=== PATIENT | female | born 1955 | race Caucasian/White ===

== ENCOUNTER 2017-10-26 16:45 | Day surgery (SDC) | payer OTHER ==
[2017-10-26] MEDS ORDERED: NS 1,000 ML IV ONE (17:08)
[2017-10-26] MEDS ORDERED: DIAZEPAM 5 MG/ML 1 ML SYR IVP ONE (17:08)
--- NOTE | 2017-10-26 17:11 | EDPHY ---
H & P Stated Complaint: pt was eating and has a piece of chicken stuck in her throat Time Seen by Provider: 10/26/17 17:08 HPI/ROS: HPI: This is a 62-year-old female who presents with Chief Complaint: pt was eating and has a piece of chicken stuck in her throat Location: throat Quality: chicken stuck Duration:since 12 noon Signs and Symptoms: no fever, no nausea, no vomiting, no hematemesis, no blood in stool, no abdominal bloating, no diarrhea, no back pain, no urinary symptoms , no indigestion, no chest pain, no shortness of breath Timing: Acute Severity: Moderate Context: Patient has a history of esophageal stricture presents with eating at a [employer] restaurant for lunch around noon and getting a piece of Sesame Chicken stuck in her throat. She reports that she initially felt a scratchy painful sensation in her throat. She believes that this sensation slowly started to pass within a few minutes. She took a drink and then felt the painful sensation reappear. She then reports that she was unable to swallow her secretions at that point. She has a history of prior endoscopy secondary to chicken food bolus last year. She denies any chest pain, shortness of breath. Does not take any blood thinners. Modifying Factors: None Comment: ROS: A comprehensive 10 system review of systems is otherwise negative aside from elements mentioned in the history of present illness. MEDICAL/SURGICAL/SOCIAL HISTORY: Medical history: Generally healthy. Does not take any regular medications. Surgical history: colon resection, appendectomy Social history: non-smoker. Family history noncontributory. CONSTITUTIONAL: Polite and cooperative elderly white female, holding washcloth spitting secretions into her hand, awake and alert, no obvious distress HEENT: Atraumatic and normocephalic, PERRL, EOMI. Nares patent; no rhinorrhea; no nasal mucosal edema. Tympanic membranes clear. Oropharynx clear, no exudate and moist pink mucosa. Airway patent. No lymphadenopathy. No meningismus. Cardiovascular: Normal S1/S2, regular rate, regular rhythm, without murmur rub or gallop. PULMONARY/CHEST: Symmetrical and nontender. Clear to auscultation bilaterally. Good air movement. No accessory muscle usage. ABDOMEN: Soft, nondistended, nontender, no rebound, no guarding, no peritoneal signs, no masses or organomegaly. No CVAT. EXTREMITIES: 2/2 pulses, strength 5/5, no deformities, no clubbing, no cyanosis or edema. NEUROLOGICAL: no focal neuro deficits. GCS 15. Talking in full sentences. SKIN: Warm and dry, no erythema. no rash. Good capillary refill. Source: Patient Exam Limitations: No limitations - Personal History Current Tetanus Diphtheria and Acellular Pertussis (TDAP): Yes Tetanus Vaccine Date: 2016 - Medical/Surgical History Hx Asthma: Yes Hx Chronic Respiratory Disease: No Hx Diabetes: No Hx Cardiac Disease: No Hx Renal Disease: No Hx Cirrhosis: No Hx Alcoholism: No Hx HIV/AIDS: No Hx Splenectomy or Spleen Trauma: No Other PMH: esophogeal strictures, colon resection, appendectomy - Social History Smoking Status: Never smoked Constitutional: Initial Vital Signs Temperature (C) 36.9 C 10/26/17 17:01 Heart Rate 84 10/26/17 17:01 Respiratory Rate 16 10/26/17 17:01 Blood Pressure 170/95 H 10/26/17 17:01 O2 Sat (%) 98 10/26/17 17:01 O2 Delivery Mode Room Air Allergies/Adverse Reactions: Sulfa (Sulfonamide Antibiotics) Allergy (Verified 10/26/17 17:01) Home Medications: Medication Instructions Recorded NK [No Known Home Meds] 10/26/17 Medical Decision Making ED Course/Re-evaluation: Vital signs stable. No hypoxia/respiratory distress. Unable to swallow secretions. Protecting airway and able to speak in complete sentences. History of esophageal stricture. IV access, normal saline 1 L and IV Valium 2.5 mg given ED decision to consult for endoscopy. Spoke with Dr. Merrill, who agrees to consult on patient and provide further care. 1720: Patient transferred to endoscopy. This patient was seen under the supervision of my secondary supervising physician. I evaluated care for this patient independently. Discussed this patient with Dr. Ordaz. Differential Diagnosis: Differential diagnosis includes but is not limited to esophageal stricture, food bowl close with obstruction, esophageal spasm, esophagitis. - Data Points Medications Given: Discontinued Medications Diazepam (Valium) 2.5 mg IVP EDNOW ONE Stop: 10/26/17 17:09 Last Admin: 10/26/17 17:16 Dose: 2.5 mg Sodium Chloride (Ns) 1,000 mls @ 0 mls/hr IV EDNOW ONE; Wide Open PRN Reason: Protocol Stop: 10/26/17 17:09 Last Admin: 10/26/17 17:15 Dose: 1,000 mls Departure - Departure Disposition: To OP Cath/Surgery Clinical Impression: Esophageal obstruction due to food impaction, History of esophageal stricture Condition: Fair
--- NOTE | 2017-10-26 19:17 | PDANEPAE ---
ANE History of Present Illness fob ANE Past Medical History - Pulmonary History Hx Oxygen in Use at Home: No Hx Sleep Apnea: No - Endocrine History Hx Diabetes: No ANE Review of Systems Review of Systems: ANE Patient History - Allergies Allergies/Adverse Reactions: Sulfa (Sulfonamide Antibiotics) Allergy (Verified 10/26/17 17:01) - Home Medications Home Medications: NK [No Known Home Meds] 10/26/17 [Last Taken Unknown] - NPO status NPO Since - Liquids (Date): 10/26/17 NPO Since - Liquids (Time): 17:00 NPO Since - Solids (Date): 10/26/17 NPO Since - Solids (Time): 13:45 - Smoking Hx Smoking Status: Never smoked ANE Labs/Vital Signs - Vital Signs Blood Pressure: 148/87 Heart Rate: 82 Respiratory Rate: 16 O2 Sat (%): 97 Height: 167.64 cm Weight: 61.235 kg ANE Physical Exam - Airway Neck exam: decreased ROM Mallampati Score: Class 3 Mouth exam: small mouth opening - Pulmonary Pulmonary: no respiratory distress - Cardiovascular Cardiovascular: regular rate and rhythym - ASA Status ASA Status: II, E
[2017-10-26] MEDS ORDERED: ROCURONIUM 50 MG/5 ML VIAL ONE (19:20)
[2017-10-26] MEDS ORDERED: PROPOFOL/EMULSION 500 MG/50 ML BOTTLE IV ONE (19:20)
[2017-10-26] MEDS ORDERED: SUCCINYLCHOLINE CHLORIDE 200 MG/10 ML SYR IVP ONE (19:20)
[2017-10-26] MEDS ORDERED: fentaNYL 100 MCG/2 ML INJ ONE (19:20)
--- NOTE | 2017-10-26 19:50 | GCON ---
CHIEF COMPLAINT: Dysphagia, foreign body sensation of the esophagus. HISTORY OF PRESENT ILLNESS: I have been asked to see this very pleasant 62-year -old woman in consultation by Dr. Ordaz. The patient has a history of intermittent dysphagia since the age of 29. She has had previous history of foreign body, requiring endoscopic intervention. She has a history of probable Schatzki ring. She reports that she was having lunch this afternoon with family. She was eating sesame chicken and felt as though the chicken had become stuck. She initially was swallowing her saliva; however, she did try to drink some water to pass the food bolus. This caused a spasm and further discomfort. She was unable to maintain secretions at that time. She presented to the emergency department for further evaluation. She has no history of heartburn or reflux disease. She had previously been on a proton pump inhibitor , but has discontinued. She was given Valium in the emergency department, without improvement. I am asked to see the patient now for further evaluation. PAST MEDICAL HISTORY: Remarkable for: 1. Rotator cuff surgery. 2. Previous history of sigmoid volvulus, status post partial colectomy. 3. Appendectomy. MEDICATIONS: She is on no medications. ALLERGIES: Sulfa. SOCIAL HISTORY: She is a rare drinker and nonsmoker. FAMILY HISTORY: Negative as it pertains to the chief complaint. REVIEW OF SYSTEMS: Negative in 10 systems, other than as mentioned in the HPI. PHYSICAL EXAMINATION: VITAL SIGNS: Temperature 36.9, heart rate 84, respiratory rate 16, blood pressure 170/95, 98% saturation on room air. HEENT: Normocephalic, atraumatic. EOMI. NECK: Supple. No cervical adenopathy. No crepitus. No thyromegaly. Mucous membranes moist. LUNGS: Clear. CARDIAC : Normal S1, S2, without murmur. ABDOMEN: Soft, benign. No hepatosplenomegaly. Nontender. EXTREMITIES: Without clubbing, cyanosis, or edema. SKIN: Warm, dry, intact. NEUROLOGIC: Nonfocal. PSYCHIATRIC: Alert and oriented x3, with normal affect. IMPRESSION: A 62-year-old woman, with a history of dysphagia, Schatzki ring, who presents to the emergency room with foreign body sensation. RECOMMENDATIONS: Proceed with urgent upper endoscopy for evaluation and potential foreign body removal, with possible dilatation. Thank you for allowing me to participate in the care of this patient. /[id number]/MODL MTDD
[2017-10-26] MEDS ORDERED: NALOXONE HCL 0.4 MG/ML INJ IVP PRN (19:51)
--- NOTE | 2017-10-26 20:11 | POSTANESTH ---
Post Anesthetic Evaluation Cardiovascular Status: Normal, Stable Respiratory Status: Normal, Stable Level of Consciousness/Mental Status: Can Participate in Eval Pain Control: Adequate, Prn Tx Ordered Nausea/Vomiting Control: Adequate, Prn Tx Ordered Complications Possibly Related to Anesthesia: None Noted
[2017-10-26 20:47] VITALS: BP 141/82
--- NOTE | 2017-11-02 11:08 | GIREPORT ---
Addendum Number: 1 Addendum Date: 10/26/2017 8:06:26 PM Repeat EGD with dilation in 8 weeks Bg Merrill MD Bg Merrill MD 10/26/2017 8:06:43 PM This report has been signed electronicallyStcali Merrill MD [facility] - Endoscopy Department Patient Name: Katherine Ross Procedure Date: 10/26/2017 6:00 PM Patient Type: Outpatient Attending / DENILSON Physician: Bg Merrill MD Procedure: Upper GI endoscopy Indications: Dysphagia, Foreign body in the esophagus Providers: Bg Merrill MD Medicines: General Anesthesia Complications: No immediate complications. Description of Procedure: After obtaining informed consent, the endoscope was passed under direct vision. Throughout the procedure, the patient's blood pressure, pulse, and oxygen saturations were monitored continuously. The Endoscope was intro duced through the mouth, and advanced to the second part of duodenum. The upp er GI endoscopy was accomplished without difficulty. The patient tolerated th e procedure well. Moderate Sedation: GA Findings: A moderate Schatzki ring was found at the gastroesophageal junction. A TTS dilator was passed through the scope. Dilation with a 15-16.5-18 mm bal loon dilator was performed to 15 mm. The examined esophagus was normal. Biopsies were obtained from the prox imal and distal esophagus with cold forceps for histology of suspected eosinophilic esophagitis. A medium-sized hiatal hernia was present. Patchy mildly erythematous mucosa without bleeding was found in the gas tric antrum. Biopsies were taken with a cold forceps for Helicobacter pylori testing. A medium amount of food (residue) was found in the gastric body. The examined duodenum was normal. Estimated Blood Loss: Estimated blood loss: none. Post Op Diagnosis: - Moderate Schatzki ring. Dilated. - Normal esophagus. Biopsied. - Medium-sized hiatal hernia. - Erythematous mucosa in the antrum. Biopsied. - A medium amount of food (residue) in the stomach. - Normal examined duodenum. Recommendation: - Patient has a contact number available for emergencies. The signs and symptoms of potential delayed complications were discussed with the pat ient. Return to normal activities tomorrow. Written discharge instructions we re provided to the patient. - Await pathology results. - Follow an antireflux regimen. - Chew food slowly and carefully. - Repeat upper endoscopy fro retreatment and dilation. - Thank you for allowing me to participate in the care of your patient. Attending Participation: I personally performed the entire procedure. Bg Merrill MD Bg Merrill MD 10/26/2017 7:53:36 PM This report has been signed electronicallyStcali Merrill MD Number of Addenda: 1 Note Initiated On: 10/26/2017 6:00 PM [email or web address]
== END 2017-10-26 20:46 | disposition home or self-care (01) ==
LOC: FSGY 17:52
PROVIDERS: ATTEND Internal Medicine Gastroenterology
DX: K22.2 Esophageal obstruction (principal); T18.120A Food in esophagus causing compression of trachea, initial encounter; K44.9 Diaphragmatic hernia without obstruction or gangrene; E86.9 Volume depletion, unspecified; Y92.511 Restaurant or cafe as the place of occurrence of the external cause
CPT/HCPCS: 43249; 96374; 99284; C1726; J0330; J2704; J3010; J3360